=== PATIENT | male | born 1965 | race Caucasian/White ===

== ENCOUNTER 2020-03-12 15:50 | Emergency (ER) | payer OTHER ==
[~2020-03-12] VITALS: Ht 175.3 cm; Wt 90.0 kg
[2020-03-12 15:55] VITALS: BP 143/68
== END 2020-03-12 16:05 | disposition left against medical advice (07) ==
LOC: ER 15:50
DX: Z53.21 Procedure and treatment not carried out due to patient leaving prior to being seen by health care provider (principal)

== ENCOUNTER 2020-03-13 09:10 | Emergency (ER) | payer OTHER ==
[~2020-03-13] VITALS: Ht 172.7 cm; Wt 100.0 kg
[2020-03-13 09:22] VITALS: BP 130/69
== END 2020-03-13 10:11 | disposition home or self-care (01) ==
LOC: ER 09:10
DX: Z20.828 Contact with and (suspected) exposure to other viral communicable diseases (principal); E11.9 Type 2 diabetes mellitus without complications; E78.00 Pure hypercholesterolemia, unspecified; I10 Essential (primary) hypertension; F14.10 Cocaine abuse, uncomplicated; F12.10 Cannabis abuse, uncomplicated
CPT/HCPCS: 99281

== ENCOUNTER 2020-10-31 19:02 | Emergency (ER) | payer MEDICAID, OTHER ==
[~2020-10-31] VITALS: Ht 177.8 cm; Wt 109.0 kg
[2020-10-31 19:36] VITALS: BP 150/90
[2020-10-31] MEDS ORDERED: TETRACAINE 0.5% OPHTH DROPS 4ML BOTHEYE ONE (19:45)
[2020-11-01] MEDS ORDERED: POLY15DR31 EACHEYE (01:07)
== END 2020-11-01 01:25 | disposition home or self-care (01) ==
LOC: ER 19:02
DX: S05.01XA Injury of conjunctiva and corneal abrasion without foreign body, right eye, initial encounter (principal); I10 Essential (primary) hypertension; E11.9 Type 2 diabetes mellitus without complications; E78.00 Pure hypercholesterolemia, unspecified; J45.909 Unspecified asthma, uncomplicated; F12.10 Cannabis abuse, uncomplicated; F14.10 Cocaine abuse, uncomplicated; X58.XXXA Exposure to other specified factors, initial encounter; Y93.H2 Activity, gardening and landscaping; Y92.017 Garden or yard in single-family (private) house as the place of occurrence of the external cause
CPT/HCPCS: 99283; J7040

== ENCOUNTER 2022-08-02 11:02 | Emergency (ER) | payer MEDICAID, OTHER ==
[~2022-08-02] VITALS: Ht 175.3 cm; Wt 93.0 kg
[~2022-08-02 11:02] MED LIST: POLY15DR31 EACHEYE
[2022-08-02] MEDS ORDERED: FAMOTIDINE 20MG/2ML VIAL IV STA (11:14)
[2022-08-02] MEDS ORDERED: DIPHENHYDRAMINE 50MG/ML VIAL IV ONE (11:15)
[2022-08-02] MEDS ORDERED: METHYLPREDNISOLONE SOD SUCC 125 MG/2 ML VIAL IV ONE (11:15)
[2022-08-02] MEDS: HYDRALAZINE 20MG/ML VIAL IV ONE ×2 (11:40→11:44)
[2022-08-02 12:18] LABS: CHLORIDE 109 mEq/L (98-107)
[2022-08-02 12:34] LABS: BASOPHILS % 1.2 % (0.0-2.0); HEMATOCRIT. 38.7 % (42.0-52.0); HEMOGLOBIN. 13.1 g/dL (14.0-18.0); LYMPHOCYTES % 19.5 % (20.0-50.0); MEAN CORPUSCULAR HEMOGLOBIN 30.8 pg (28.0-32.0); MEAN CORPUSCULAR VOLUME 90.6 fL (80.0-94.0); MONOCYTES % 6.9 % (2.0-8.0); NEUTROPHILS % 67.4 % (40.0-76.0); PLATELET 280 x1000/uL (130-400); RED BLOOD CELL COUNT 4.27 mill/uL (4.7-6.1); RED CELL DISTRIBUTION WIDTH 13.7 % (11.6-14.6)
[2022-08-02 15:00] VITALS: BP 140/70
[2022-08-02] MEDS ORDERED: P50 MT (15:57)
[2022-08-02] MEDS ORDERED: FAMO-135 MT (15:57)
[2022-08-02] MEDS ORDERED: DIPH25CA83 MT (15:57)
[2022-08-02] MEDS ORDERED: EPIN0.3P3 IM (15:57)
== END 2022-08-02 16:10 | disposition left against medical advice (07) ==
LOC: ER 11:02 → EDBEDREQ 12:04 → EDBEDREQTM 12:04 → ER 16:10 → CANBEDREQ 08-04 21:03
DX: T78.3XXA Angioneurotic edema, initial encounter (principal); I16.0 Hypertensive urgency; X58.XXXA Exposure to other specified factors, initial encounter; Y93.89 Activity, other specified; Y92.89 Other specified places as the place of occurrence of the external cause; E11.65 Type 2 diabetes mellitus with hyperglycemia; D64.9 Anemia, unspecified; Z20.822 Contact with and (suspected) exposure to COVID-19
CPT/HCPCS: 36415; 71045; 80053; 83690; 85025; 87426; 93005; 96374; 96375; 99291; C9803; J0360; J1200; J2930; J3490

== ENCOUNTER 2022-08-12 17:04 | Emergency (ER) | payer OTHER ==
[~2022-08-12 17:04] MED LIST changes: +DIPH25CA83 MT; +EPIN0.3P3 IM; +FAMO-135 MT; +P50 MT
== END 2022-08-12 18:00 | disposition left against medical advice (07) ==
LOC: ER 17:04
DX: Z53.21 Procedure and treatment not carried out due to patient leaving prior to being seen by health care provider (principal)

== ENCOUNTER 2022-10-29 08:10 | Emergency (ER) | payer OTHER ==
[~2022-10-29] VITALS: Ht 175.3 cm; Wt 90.0 kg
[2022-10-29] MEDS ORDERED: EPINEPHRINE 1:1000 1 MG/ML AMP IM ONE ×2 (08:30→09:30)
[2022-10-29] MEDS ORDERED: FAMOTIDINE 20MG/2ML VIAL IV ONE (08:30)
[2022-10-29] MEDS ORDERED: SODIUM CHLORIDE 0.9% 1,000 ML IV SCH (08:30)
[2022-10-29] MEDS ORDERED: METHYLPREDNISOLONE SOD SUCC 125 MG/2 ML VIAL IV ONE (08:30)
[2022-10-29] MEDS ORDERED: DIPHENHYDRAMINE 50MG/ML VIAL IV ONE (08:30)
[2022-10-29 08:36] LABS: BASOPHILS % 1.4 % (0.0-2.0); EOSINOPHILS % 4.5 % (0.0-5.0); HEMATOCRIT. 38.8 % (42.0-52.0); HEMOGLOBIN. 13.4 g/dL (14.0-18.0); LYMPHOCYTES % 25.7 % (20.0-50.0); MEAN CORPUSCULAR HEMOGLOBIN 30.7 pg (28.0-32.0); MEAN PLATELET VOLUME 8.3 fl (7.4-10.4); MONOCYTES % 6.8 % (2.0-8.0); NEUTROPHILS % 61.6 % (40.0-76.0); PLATELET 358 x1000/uL (130-400); RED BLOOD CELL COUNT 4.36 mill/uL (4.7-6.1); RED CELL DISTRIBUTION WIDTH 13.4 % (11.6-14.6)
[2022-10-29 08:39] LABS: CHLORIDE 109 mEq/L (98-107)
[2022-10-29 12:51] VITALS: BP 136/60
[2022-10-29] MEDS ORDERED: EPIN0.3P3 IM (14:10)
== END 2022-10-29 14:15 | disposition admitted as inpatient to this hospital (09) ==
LOC: ER 08:10
DX: T78.3XXA Angioneurotic edema, initial encounter (principal); I10 Essential (primary) hypertension; E11.9 Type 2 diabetes mellitus without complications; E78.00 Pure hypercholesterolemia, unspecified; J45.909 Unspecified asthma, uncomplicated
CPT/HCPCS: 36415; 80053; 85025; 86850; 86900; 86901; 86927; 96361; 96372; 96374; 96375; 99291; J1200; J2930; J3490; Z7610; P9017